=== PATIENT | male | born 1970 | race Caucasian/White ===

== ENCOUNTER 2017-03-08 12:00 | Day surgery (SDC) | payer OTHER ==
[~2017-03-08] VITALS: Ht 185.4 cm; Wt 97.5 kg
[~2017-03-08 12:00] MED LIST: ESOM40CA41 PO; PRE20 PO; RANI150C4 PO; Sodium Chloride LOK Flush 10 mL Syringe IV PRN; fentaNYL-PF 50 mCg/mL 2 mL Inj IVPUSH PRN
[2017-03-08 12:41] VITALS: BP 129/86; PULSE 73; RESP 14; O2SAT 98
[2017-03-08 13:53] VITALS: BP 123/92; PULSE 68; RESP 14; O2SAT 96
[2017-03-08 14:03] VITALS: BP 123/75; PULSE 80; RESP 14; O2SAT 97
[2017-03-08 14:13] VITALS: BP 124/79; PULSE 68; RESP 14; O2SAT 96
--- NOTE | 2017-03-08 14:34 | ENDO ---
[address] [address] ENDOSCOPY PROCEDURE PATIENT: GURMEET MORALES : 1970 MR#: [id number] ADMIT: 03/08/2017 JOB ID: [id number] TYPE OF OPERATION: Esophagogastroduodenoscopy, biopsy, with esophageal dilatation. PREOPERATIVE DIAGNOSIS(ES): Gastroesophageal reflux disease and dysphagia. POSTOPERATIVE DIAGNOSIS(ES): 1. Irregular Z-line. 2. Small hiatal hernia. 3. Mild nonerosive gastritis. ANESTHESIA: Fentanyl 150 mcg, Versed 7 mg IV administered. COMPLICATIONS: None. BLOOD LOSS: Minimal. DESCRIPTION OF PROCEDURE: After risks and benefits explained to the patient, informed was consent was obtained. After anesthesia administered, upper endoscope was then inserted in the mouth and intubated the esophagus, stomach, second portion of duodenum. Mucosa carefully examined. After procedure was done, the scope withdrawn, procedure terminated. FINDINGS: Upon inspection of the esophagus, there was irregular Z-line located at 34 cm from the incisors. No masses, ulcers, or lesions were seen. Upon entering the stomach, there was mild nonerosive gastritis. No masses or ulcers or lesions were seen. Retroflexion showed small hiatal hernia. Duodenal bulb, first and second portion normal. Biopsies taken of the antrum and body of the stomach and mid and distal esophagus. Afterwards, an 18-20 TTS serial preballoon dilatation was performed in serial fashion to 20 mm with good mucosa tear. IMPRESSIONS: 1. Irregular Z-line, suspicious for Orozco's. 2. Small hiatal hernia. 3. Mild nonerosive gastritis. 4. Successful TTS CRE balloon dilatation in serial fashion up to 20 mm with good mucosa tear RECOMMENDATION: Await pathology results. Continue anti-reflux medication. Follow up in GI clinic as needed. PETE
--- NOTE | 2017-03-11 14:41 | PATH ---
SURGICAL PATHOLOGY Attending Physician:Wally Brower MD CASE STATUS: Signed Out PATIENT NAME: GURMEET MORALES PID: [id number] : 1970 DATE COLLECTED:03/08/2017 21:28 SPECIMEN: 1: Stomach, Antrum, Biopsy 2: Gastric, Biopsy 3: Esophagus, Biopsy 4: Esophagus, Biopsy CLINICAL HISTORY: 1). ANTRUM BIOPSY 2). GASTRIC BODY BIOPSY 3). DISTAL ESOPHAGUS BIOPSY 4). MID ESOPHAGUS BIOPSY FINAL DIAGNOSIS: 1. Stomach, Antrum, Biopsy: Antral mucosa with no diagnostic abnormality. Negative for Helicobacter organisms. Negative for intestinal metaplasia. Negative for dysplasia and malignancy. 2. Stomach, Body, Biopsy: Body-type mucosa with no diagnostic abnormality. Negative for Helicobacter organisms. Negative for intestinal metaplasia. Negative for dysplasia and malignancy. 3. 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 Negative for dysplasia and malignancy. 4. Mid Esophagus, Biopsy: Squamous epithelium with no diagnostic abnormality. Intraepithelial eosinophils are not increased. Negative for dysplasia and malignancy. ICD10: K22.70 GROSS DESCRIPTION: Received are four formalin-filled containers, each labeled with the patient' s name. 1. Received in formalin, labeled with the patient' s name and "antrum biopsy", are two fragments of phelps, soft tissue ranging in size from 0.1 x 0.1 x 0.1 cm to 0.2 x 0.1 x 0.1 cm. All fragments are totally submitted in cassette 1A. 2. Received in formalin, labeled with the patient' s name and "gastric body biopsy", are two fragments of phelps, soft tissue ranging in size from 0.1 x 0.1 x 0.1 cm to 0.2 x 0.1 x 0.1 cm. All fragments are totally submitted in cassette 2A. 3. Received in formalin, labeled with the patient' s name and "distal esophagus biopsy", are three fragments of phelps, soft tissue ranging in size from 0.2 x 0.1 x 0.1 cm to 0.2 x 0.2 x 0.1 cm. All fragments are totally submitted in cassette 3A. 4. Received in formalin, labeled with the patient' s name and "mid esophagus biopsy", are two fragments of phelps, soft tissue ranging in size from 0.1 x 0.1 x 0.1 cm to 0.2 x 0.1 x 0.1 cm. All fragments are totally submitted in cassette 4A. ([id number]) ICD-9 CODES: CPT CODES: 1: 97344 2: 57186 3: 53729 4: 65938 Electronically Signed Out Georgina Patten MD [facility] [address], [place] [address] Technical component performed at [facility], [address], [place], [address]
== END 2017-03-08 23:59 | disposition home or self-care (01) ==
LOC: END 12:00
PROVIDERS: ATTEND Internal Medicine Gastroenterology
DX: K22.70 Barrett's esophagus without dysplasia (principal); K44.9 Diaphragmatic hernia without obstruction or gangrene; R13.10 Dysphagia, unspecified; K29.70 Gastritis, unspecified, without bleeding; K21.9 Gastro-esophageal reflux disease without esophagitis; Z86.010 Personal history of colon polyps; M10.9 Gout, unspecified
CPT/HCPCS: 43239; 43249; G0500